=== PATIENT | male | born 1990 | race Caucasian/White ===

== ENCOUNTER 2016-12-17 01:04 | Emergency (ER) | payer OTHER ==
[~2016-12-17] VITALS: Wt 66.5 kg
[~2016-12-17 01:04] MED LIST: ALBU18HF INHALATION; BECL8.7A INH; ZOLP5TAB6 PO
[2016-12-17] MEDS ORDERED: DEXAMETHASONE 10 MG/ML 1 ML INJ IM STA (02:17)
[2016-12-17] MEDS ORDERED: LEVALBUTEROL (NEB) 1.25 MG/0.5 ML AMP INH STA ×2 (02:17→03:03)
[2016-12-17] MEDS ORDERED: IPRATROPIUM (NEB) 0.5 MG/2.5 ML AMP INH STA (03:03)
--- NOTE | 2016-12-17 03:18 | ERD ---
ER Documentation Chief Complaint Date/Time DATE: 12/17/16 TIME: 03:14 Chief Complaint COUGH AND WHEEZING STARTED THIS AM HX OF ASTHMA HPI This a 25-year-old male presents emergency department for cough and wheezing starting this morning. Patient is having shortness of breath and difficulty breathing since this morning. Patient is talking in complete sentences. No difficulty swallowing. Denies chest pain or palpitations. Has history of asthma and has been out of his inhalers for about 1 month. No fevers or chills. No abdominal pain, nausea, vomiting or diarrhea. ROS All systems reviewed and are negative except as per history of present illness. Medications Home Meds Active Scripts Albuterol Sulfate* (Proair HFA*) 8.5 Gm Hfa.aer.ad, 2 PUFF INH Q4, #1 INHALER Prov:NANCI HILLS NP 12/17/16 Prednisone* (Prednisone*) 20 Mg Tab, 40 MG PO DAILY for 4 Days, TAB Prov:NANCI HILLS NP 12/17/16 Beclomethasone Dip* (Qvar 40*) 7.3 Gm Inha, 1 PUFF INH BID, #1 INHALER Prov:SUNSHINE DAVIS MD 07/01/16 Reported Medications Zolpidem Tartrate* (Zolpidem Tartrate*) 5 Mg Tablet, 5 MG PO QHS Y for INSOMNIA , #30 TAB 09/19/16 Albuterol Sulfate* (Ventolin HFA*) 18 Gm Hfa.aer.ad, 2 PUFF INHALATION Q4H, #1 INHALER 09/19/16 Allergies Allergies: Coded Allergies: No Known Drug Allergies (Verified Allergy, Mild, 09/19/16) PMhx/Soc Medical and Surgical Hx: pt denies Surgical Hx History of Surgery: No Anesthesia Reaction: No Hx Neurological Disorder: No Hx Respiratory Disorders: Yes (ASTHMA ) Hx Cardiac Disorders: No Hx Psychiatric Problems: No Hx Miscellaneous Medical Probl: No Hx Alcohol Use: Yes Hx Substance Use: No Hx Tobacco Use: No Smoking Status: Former smoker Physical Exam Vitals Vital Signs Date Time Temp Pulse Resp B/P Pulse Ox O2 Delivery O2 Flow Rate FiO2 12/17/16 04:15 97.2 110 20 127/82 97 Room Air 12/17/16 03:22 101 22 97 Nasal Cannula 3.0 12/17/16 02:24 Nasal Cannula 2 12/17/16 01:08 97.2 103 20 135/82 96 Physical Exam Const: Alert Head: Atraumatic Eyes: Normal Conjunctiva ENT: Normal External Ears, Nose and Mouth. Neck: Full range of motion..~ No meningismus. Resp: Wheezing r to auscultation bilaterally. Patient is talking in complete sentences. Cardio: Regular rate and rhythm, no murmurs Abd: Soft, non tender, non distended. Normal bowel sounds Skin: No petechiae or rashes Back: No midline or flank tenderness Ext: No cyanosis, or edema Neur: Awake and alert Psych: Normal Mood and Affect Results 24 hrs Current Medications Medications (Trade) Dose Ordered Sig/Chantel Route PRN Reason Start Time Stop Time Status Last Admin Dose Admin Dexamethasone (Decadron) 10 mg ONCE STAT IM 12/17/16 02:17 12/17/16 02:19 DC 12/17/16 02:35 Levalbuterol (Xopenex Neb) 1.25 mg ONCE STAT INH 12/17/16 02:17 12/17/16 02:19 DC 12/17/16 03:01 Levalbuterol (Xopenex Neb) 10 mg ONCE STAT INH 12/17/16 03:03 12/17/16 03:06 DC 12/17/16 03:14 Ipratropium [place] (Atrovent 0.02% (Neb)) 1 mg ONCE STAT INH 12/17/16 03:03 12/17/16 03:06 DC 12/17/16 03:14 Procedures/MDM ED COURSE: The patient was stable throughout ED course. I kept the patient and/or family informed of laboratory and diagnostic imaging results throughout the ED course. Continuous Xopenex and Atrovent nebulizers given per RT Dose of Decadron 10 mg IM given Imaging Chest x-ray Patient: KAREL WHITTAKER : 1990 Age: 25 Sex: M MR #: [id number] DOS: 12/17/16 0217 Ordering MD: NANCI HILLS NP Location: [facility] Room/Bed: PROCEDURE: XR Chest. CLINICAL INDICATION: Asthma exacerbation. TECHNIQUE: Single frontal chest x-ray. COMPARISON: 07/01/2016 FINDINGS: The cardiomediastinal silhouette is unremarkable. The lungs are clear. No focal infiltrate is seen. There is no pleural effusion. There is no pneumothorax. The osseous structures are unremarkable. IMPRESSION: 1. No active disease. MDM: 25-year-old male presents to the ER for cough and wheezing 1 day. Symptoms started this morning. Patient has history of asthma and has been out of his inhaler for the past 1 month. Patient given continuous Xopenex and Atrovent nebulizer treatments per respiratory therapy. One dose of Decadron 10 mg IM given. Patient's breathing has improved tremendously upon reassessment. Chest x-ray reviewed by radiologist as no active disease. Patient resting comfortable. Vital signs are stable. No fevers. Patient's diagnosis is asthma exacerbation. Low suspicion for pneumonia, bronchitis, bronchiolitis, pneumothorax or pleural effusion. Patient is appropriate for outpatient management will be given prescription for prednisone and pro-air inhaler. Instructed patient to follow-up with primary care provider in the next 1-2 days for reassessment and additional management. Return to ED for any high fever, chest pain, difficulty breathing, shortness breath, wheezing, vomiting, diarrhea, abdominal pain or any new or worsening symptoms. Patient verbalizes understanding. All questions answered at discharge. Departure Diagnosis: Primary Impression: Asthma with acute exacerbation Asthma severity: unspecified severity Qualified Code: J45.901 - Asthma with acute exacerbation, unspecified asthma severity Condition: Stable NANCI HILLS NP Dec 17, 2016 03:18
--- NOTE | 2016-12-17 03:19 | RADRPT ---
PROCEDURE: XR Chest. CLINICAL INDICATION: Asthma exacerbation. TECHNIQUE: Single frontal chest x-ray. COMPARISON: 07/01/2016 FINDINGS: The cardiomediastinal silhouette is unremarkable. The lungs are clear. No focal infiltrate is seen. There is no pleural effusion. There is no pneumothorax. The osseous structures are unremarkable. IMPRESSION: 1. No active disease. RPTAT: HMVK .Wallace Swift MD, MD Date Time Electronically viewed and signed by .Wallace Swift MD, on 12/17/2016 03:18 .K/
[2016-12-17] MEDS ORDERED: ALBU8.5H3 INH (03:56)
[2016-12-17] MEDS ORDERED: PRED20TA PO (03:56)
[2016-12-17 04:15] VITALS: BP 127/82; PULSE 110; RESP 20; TEMP 97.2
== END 2016-12-17 04:15 | disposition home or self-care (01) ==
LOC: FTE 01:04
DX: J45.901 Unspecified asthma with (acute) exacerbation (principal); Z87.891 Personal history of nicotine dependence
CPT/HCPCS: 71010; 94644; 94645; J1100; Z7610; 96372

== ENCOUNTER 2017-04-14 02:11 | Emergency (ER) | payer OTHER ==
[~2017-04-14] VITALS: Ht 180.3 cm; Wt 68.5 kg
[~2017-04-14 02:11] MED LIST changes: +ALBU8.5H3 INH; +PRED20TA PO; -ZOLP5TAB6 PO; +ZOLP5TAB7 PO
[2017-04-14 02:16] VITALS: Ht 180.3 cm; Wt 68.5 kg
[2017-04-14] MEDS ORDERED: METHYLPREDNISOLONE 125 MG INJ IM STA (02:28)
[2017-04-14] MEDS ORDERED: IPRATROPIUM (NEB) 0.5 MG/2.5 ML AMP NEB STA (02:28)
[2017-04-14] MEDS ORDERED: ALBUTEROL 0.5% (NEB) 2.5 MG/0.5 ML AMP INH STA (02:28)
--- NOTE | 2017-04-14 02:44 | ERD ---
ER Documentation Chief Complaint Date/Time DATE: 04/14/17 TIME: 02:42 Chief Complaint sob x1 day, ran out of rescue inhaler HPI 26-year-old male presents here in emergency department for complaints of shortness of breath cough and wheezing started yesterday. Patient has been having dry cough, does not cough up any phlegm or blood. Patient ran out of his inhaler, patient is asthmatic. Patient does not have any fever or chills. ROS All systems reviewed and are negative except as per history of present illness. Medications Home Meds Active Scripts Albuterol Sulfate* (Proair HFA*) 8.5 Gm Hfa.aer.ad, 2 PUFF INH Q4, #1 INHALER Prov:NANCI HILLS NP 12/17/16 Prednisone* (Prednisone*) 20 Mg Tab, 40 MG PO DAILY for 4 Days, TAB Prov:NANCI HILLS NP 12/17/16 Beclomethasone Dip* (Qvar 40*) 7.3 Gm Inha, 1 PUFF INH BID, #1 INHALER Prov:SUNSHINE DAVIS MD 07/01/16 Reported Medications Zolpidem Tartrate* (Zolpidem Tartrate*) 5 Mg Tablet, 5 MG PO QHS Y for INSOMNIA , #30 TAB 09/19/16 Albuterol Sulfate* (Ventolin HFA*) 18 Gm Hfa.aer.ad, 2 PUFF INHALATION Q4H, #1 INHALER 09/19/16 Allergies Allergies: Coded Allergies: No Known Drug Allergies (Verified Allergy, Mild, 09/19/16) PMhx/Soc History of Surgery: No Anesthesia Reaction: No Hx Neurological Disorder: No Hx Respiratory Disorders: Yes (asthma) Hx Cardiac Disorders: No Hx Psychiatric Problems: No Hx Miscellaneous Medical Probl: No Hx Alcohol Use: Yes Hx Substance Use: Yes (marijuana) Hx Tobacco Use: No Smoking Status: Never smoker FmHx Family History: No coronary disease, No diabetes, No other Physical Exam Vitals Vital Signs Date Time Temp Pulse Resp B/P Pulse Ox O2 Delivery O2 Flow Rate FiO2 04/14/17 04:11 87 20 98 21 04/14/17 03:25 114 24 140/81 100 04/14/17 02:45 74 20 94 21 04/14/17 02:16 98.2 107 24 138/85 94 Physical Exam GENERAL: The patient is well developed and appropriate for usual state of health, in no apparent distress. CHEST: Diffuse wheezing bilaterally. There are no rales, crackles or rhonchi. HEART: Regular rate and rhythm. No murmurs, clicks, rubs or gallops. No S3 or S4. ABDOMEN: Soft, nontender and nondistended. Good bowel sounds. No rebound or guarding. No gross peritonitis. No gross organomegaly or masses. No Negron sign or McBurney point tenderness. BACK: No midline or flank tenderness. EXTREMITIES: Equal pulses bilaterally. There is no peripheral clubbing, cyanosis or edema. No focal swelling or erythema. Full range of motion. Grossly neurovascularly intact. NEURO: Alert and oriented. Cranial nerves 2-12 intact. Motor strength in all 4 extremities with 5/5 strength. Sensation grossly intact. Normal speech and gait. SKIN: There is no apparent rash or petechia. The skin is warm and dry. HEMATOLOGIC AND LYMPHATIC: There is no evidence of excessive bruising or lymphedema. No gross cervical, axillary, or inguinal lymphadenopathy. Results 24 hrs Current Medications Medications (Trade) Dose Ordered Sig/Chantel Route PRN Reason Start Time Stop Time Status Last Admin Dose Admin Ipratropium [place] (Atrovent 0.02% (Neb)) 0.5 mg ONCE STAT NEB 04/14/17 02:28 04/14/17 02:29 DC 04/14/17 02:42 Albuterol (Proventil 0.5% (Neb)) 10 mg ONCE STAT INH 04/14/17 02:28 04/14/17 02:29 DC 04/14/17 02:43 Methylprednisolone Sodium Succinate (Solu-Medrol) 125 mg ONCE STAT IM 04/14/17 02:28 04/14/17 02:29 DC 04/14/17 02:51 Ondansetron HCl (Zofran Odt) 4 mg ONCE STAT ODT 04/14/17 03:12 04/14/17 03:13 DC 04/14/17 03:22 Levalbuterol (Xopenex Neb) 5 mg ONCE STAT INH 04/14/17 03:53 04/14/17 03:54 DC 04/14/17 04:10 Breathing treatment of albuterol and Atrovent Solu-Medrol IM was given here in emergency department, after treatment, patient's lungs sounds are clear and patient's oxygenation is better. Patient verbalized feeling much better. PROCEDURE: XR Chest. CLINICAL INDICATION: Asthma exacerbation TECHNIQUE: Single frontal view of the chest was obtained COMPARISON: 12/17/2016 FINDINGS: The heart and mediastinum are within normal limits. There is hypoinflation of the lungs. There is mild prominence of the lung interstitium which could be secondary to asthma. There is no pleural effusion or pneumothorax. Minimal dextroscoliosis of the thoracic spine again apparent. IMPRESSION: Hypoinflation of the lungs. There is mild prominence of the lung interstitium which could be secondary to asthma. RPTAT: HJES .Jeffrey Fofana MD, MD Date Time Electronically viewed and signed by .Jeffrey Fofana MD, on 04/14/2017 03:32 .S/ CC: LIZZETTE SINGH RETORT ENGINEER Procedures/MDM Medical Decision Making: Patient symptoms are most likely consistent with acute bronchitis with acute asthma exacerbation, which viral in origin. There is low suspicion for Pneumonia at this time since patients lungs sounds are clear, patient O2 saturation is normal and patient doesnt show any respiratory distress. Patients chest xray doesnt show infiltrates or any other cardiopulmonary emergencies at this time. There is low suspicion for other cardiopulmonary emergencies at this time such as CHF, Pulmonary Embolism, Pneumothorax, Aortic Aneurysm or any other cardiopulmonary emergencies at this time. There is low suspicion for sepsis. Patient appears well and is hemodynamically stable. Patient does not have any fever. Disposition: Home. Condition: Stable Prescriptions: Albuterol, guaifenesin DM, Zyrtec, prednisone Instructions: Patient is advised to take medications as prescribed. Patient is advised to rest. Patient advised to increase fluid intake, do humidifier at home and if possible, do salt water gargles. Patient is advised that if symptoms are worse, shortness of breath, uncontrolled fever, stridor, vomiting, worst signs and symptoms to return to emergency department immediately. Otherwise, patient is advised to follow up with primary doctor in 5-7 days. Departure Diagnosis: Primary Impression: Asthma with acute exacerbation Asthma severity: unspecified severity Qualified Code: J45.901 - Asthma with acute exacerbation, unspecified asthma severity Additional Impression: Acute bronchitis Bronchitis organism: unspecified organism Qualified Code: J20.9 - Acute bronchitis, unspecified organism Condition: Stable Patient Instructions: Bronchitis With Wheezing (Adult) Additional Instructions: Patient is advised to take medications as prescribed. Patient is advised to rest. Patient advised to increase fluid intake, do humidifier at home and if possible, do salt water gargles. Patient is advised that if symptoms are worse, shortness of breath, uncontrolled fever, stridor, vomiting, worst signs and symptoms to return to emergency department immediately. Otherwise, patient is advised to follow up with primary doctor in 5-7 days. LIZZETTE SINGH NP April 14, 2017 02:44
[2017-04-14] MEDS ORDERED: ONDANSETRON (ODT) 4 MG TAB ODT STA (03:12)
--- NOTE | 2017-04-14 03:32 | RADRPT ---
PROCEDURE: XR Chest. CLINICAL INDICATION: Asthma exacerbation TECHNIQUE: Single frontal view of the chest was obtained COMPARISON: 12/17/2016 FINDINGS: The heart and mediastinum are within normal limits. There is hypoinflation of the lungs. There is mild prominence of the lung interstitium which could be secondary to asthma. There is no pleural effusion or pneumothorax. Minimal dextroscoliosis of the thoracic spine again ap parent. IMPRESSION: Hypoinflation of the lungs. There is mild prominence of the lung interstitium which could be second felipe to asthma. RPTAT: HJES .Jeffrey Fofana MD, MD Date Time Electronically viewed and signed by .Jeffrey Fofana MD, MD on 04/14/2017 03:32 .S/
[2017-04-14] MEDS ORDERED: LEVALBUTEROL (NEB) 1.25 MG/0.5 ML AMP INH STA (03:53)
[2017-04-14] MEDS ORDERED: GUAI120S26 PO (04:34)
[2017-04-14] MEDS ORDERED: PRED50TA PO (04:34)
[2017-04-14] MEDS ORDERED: CETI10CA PO (04:34)
[2017-04-14] MEDS ORDERED: ALBU8.5H3 INH (04:34)
[2017-04-14 04:58] VITALS: BP 118/84; PULSE 120; RESP 20
== END 2017-04-14 05:01 | disposition home or self-care (01) ==
LOC: FTE 02:11
DX: J45.901 Unspecified asthma with (acute) exacerbation (principal); J20.9 Acute bronchitis, unspecified
CPT/HCPCS: 71010; 94644; 94645; 96372; J2930; Z7502; Z7610

== ENCOUNTER 2017-05-06 13:25 | Emergency (ER) | payer OTHER ==
[~2017-05-06] VITALS: Ht 167.6 cm; Wt 65.0 kg
[~2017-05-06 13:25] MED LIST changes: +CETI10CA PO; +GUAI120S26 PO; +PRED50TA PO
[2017-05-06 13:27] VITALS: Ht 167.6 cm; Wt 65.0 kg
[2017-05-06] MEDS ORDERED: IBUP400T22 PO (14:45)
[2017-05-06] MEDS ORDERED: AMOX1TAB10 PO (14:45)
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
== END 2017-05-06 15:27 | disposition home or self-care (01) ==
LOC: FTE 13:25
DX: K08.89 Other specified disorders of teeth and supporting structures (principal); J45.909 Unspecified asthma, uncomplicated
CPT/HCPCS: 99283

== ENCOUNTER 2017-05-12 15:13 | Emergency (ER) | payer OTHER ==
[~2017-05-12] VITALS: Ht 157.5 cm; Wt 65.0 kg
[~2017-05-12 15:13] MED LIST changes: +AMOX1TAB10 PO; +IBUP400T22 PO
[2017-05-12 15:15] VITALS: Ht 157.5 cm; Wt 65.0 kg
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
[2017-05-12] MEDS ORDERED: KETOROLAC 30 MG INJ IM STA (18:18)
[2017-05-12] MEDS ORDERED: HYDR-906 PO (18:39)
[2017-05-12] MEDS ORDERED: IBUP-1542 PO (18:39)
[2017-05-12 19:15] VITALS: BP 125/81; PULSE 81; RESP 18; TEMP 98.2
== END 2017-05-12 19:15 | disposition home or self-care (01) ==
LOC: E/R 15:13 → FTE 19:15
DX: R68.84 Jaw pain (principal); J45.909 Unspecified asthma, uncomplicated; R51 Headache
CPT/HCPCS: 70450; 70486; 72125; J1885; 96372